=== PATIENT | female | born 1970 | race Two or more races ===

== ENCOUNTER 2019-06-17 00:12 | Emergency (ER) | payer MEDICAID ==
[~2019-06-17] VITALS: Ht 142.2 cm; Wt 72.6 kg
[~2019-06-17 00:12] MED LIST: KEFLEX500 MG ORAL; NKM; NORCO 5-325 TA1 EACH ORAL
--- NOTE | 2019-06-17 00:23 | NUR ---
ED Nurse Note: pt presents to ED c/o R buttock and hip px since this morning. pt denies any injury or trauma to the area. 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 pt rates the paina 7/10 that is there when she walks and when she is sitting still. pt denies any other symptoms at this time.
[2019-06-17 00:27] VITALS: BP 128/80
[2019-06-17] MEDS ORDERED: Ketorolac 60mg Inj IM ONE (00:45)
[2019-06-17] MEDS ORDERED: IBUPROFEN600 MG ORAL (00:45)
[2019-06-17 00:49] VITALS: BP 128/80
--- NOTE | 2019-06-17 00:49 | NUR ---
ER DISCHARGE NOTE: Patient is cleared to be discharged per ERMD, pt is aox4, on room air, with stable vital signs. pt was given dc and prescription instructions, pt was able to verbalize understanding, pt id band removed without complications. pt is able to ambulate with steady gait. pt took all belongings.
--- NOTE | 2019-06-17 01:13 | Emergency Room Report ---
History of Present Illness General Chief Complaint: Pain Source: Patient Present Illness HPI Patient presents with complaints of right-sided leg pain and numbness Patient reports that she was fairly ill yesterday with chills and was in bed for prolonged period of time After getting out of bed she felt some numbness to the right buttock area down to the right upper mid thigh Denies any difficulty ambulating denies any saddle paresthesia Denies any loss of control of bowel or urination Along with the numbness and tingling patient also felt some increased pain at times sharp shooting Denies any foot drop denies any other recent trauma denies any midline back pain Allergies: Coded Allergies: No Known Allergies (Unverified , 12/29/12) Patient History Past Medical History: see triage record Reviewed Nursing Documentation: PMH: Agreed; PSxH: Agreed Nursing Documentation-PMH Past Medical History: No Stated History Review of Systems All Other Systems: negative except mentioned in HPI Physical Exam Vital Signs Date Time Temp Pulse Resp B/P (MAP) Pulse Ox O2 Delivery O2 Flow Rate FiO2 06/17/19 00:16 98.4 58 16 128/80 (96) 98 Room Air Sp02 EP Interpretation: reviewed, normal General Appearance: well appearing, no apparent distress Head: normocephalic, atraumatic Eyes: bilateral eye PERRL, bilateral eye EOMI ENT: hearing grossly normal, EOM grossly intact Neck: supple Respiratory: lungs clear, no retraction Cardiovascular #1: regular rate, rhythm Gastrointestinal: non tender, soft Genitourinary: no CVA tenderness Musculoskeletal: other - Tender on palpation of the right posterior superior iliac crest, patient otherwise ambulatory, able to raise up on her toes sensory is intact, Neurologic: alert, hr generalist III-XII nml as tested, oriented x3 Skin: no rash Lymphatic: no adenopathy Medical Decision Making Diagnostic Impression: Primary Impression: sciatica ER Course Patient description and the clinical exam appears to be consistent with likely sciatic discomfort Other differential such as neurological, neurosurgical, vascular, chest etiology entertained Patient otherwise has a fairly consistent exam with sciatic flare After initial intervention does feel better and will have initial conservative outpatient trial with Return to ER with any worsening symptoms Last Vital Signs Date Time Temp Pulse Resp B/P (MAP) Pulse Ox O2 Delivery O2 Flow Rate FiO2 06/17/19 00:49 98.4 89 16 128/80 98 Room Air Status: improved Disposition: HOME, SELF-CARE Condition: Improved Scripts Ibuprofen* (MOTRIN*) 600 Mg Tablet 600 MG ORAL Q8H PRN for For Pain, #20 TAB 0 Refills Prov: Cristopher Salazar DO 06/17/19 Referrals: NON PHYSICIAN (PCP) [facility] Leyva. [facility] Patient Instructions: Sciatica, [id number] Additional Instructions: Patient is provided with the discharge instructions notified to follow up with primary doctor in the next 2-3 days otherwise return to the er with any worsening symptoms. Please note that this report is being documented using [employer]AG[employer] technology. This can lead to erroneous entry secondary to incorrect interpretation by the dictating instrument. Cristopher Salazar DO Jun 17, 2019 01:13
== END 2019-06-17 00:51 | disposition home or self-care (01) ==
LOC: EMR 00:40
DX: M54.30 Sciatica, unspecified side (principal); M79.604 Pain in right leg
CPT/HCPCS: 96372; Z7502; 99283

== ENCOUNTER 2019-10-02 09:01 | Emergency (ER) | payer MEDICAID ==
[~2019-10-02] VITALS: Ht 142.2 cm; Wt 72.6 kg
[~2019-10-02 09:01] MED LIST changes: +IBUPROFEN600 MG ORAL
--- NOTE | 2019-10-02 09:12 | NUR ---
ED Nurse Note: Patient walked into ED c/o anxiety since this AM. Patient feels like she is having a panic attack, woke this AM with neck/shoulder tensioni along with pain radiating down her right arm. Patient AxO x 4. Urine sample collected and sent to lab.
[2019-10-02 09:13] VITALS: BP 147/89
--- NOTE | 2019-10-02 09:20 | NUR ---
ED Nurse Note: 20 g IV started in right AC, blood collected and sent to lab. 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 Bed in lowest position. Patient denies suicidal ideation or desire to hurt others.
--- NOTE | 2019-10-02 09:28 | Emergency Room Report ---
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 She reports this morning that she felt pain in her neck tightness in her right arm she started breathing very quickly, started having tears and feeling very anxious, and very sad severity was moderate, constant lasting minutes to an hour started earlier this morning, she states this was similar to when she had a panic attack in 2009. She denies any chest pain or shortness of breath Allergies: Coded Allergies: No Known Allergies (Unverified , 12/29/12) Patient History Past Medical History: see triage record Last Menstrual Period: none Now: No Reviewed Nursing Documentation: PMH: Agreed; PSxH: Agreed Nursing Documentation-PMH Past Medical History: No Stated History Review of Systems All Other Systems: negative except mentioned in HPI Physical Exam Vital Signs Date Time Temp Pulse Resp B/P (MAP) Pulse Ox O2 Delivery O2 Flow Rate FiO2 10/02/19 09:03 98.2 58 20 147/89 (108) 98 Room Air Sp02 EP Interpretation: reviewed, normal General Appearance: well appearing, no apparent distress, alert Head: normocephalic, atraumatic Eyes: bilateral eye PERRL, bilateral eye EOMI ENT: uvula midline, moist mucus membranes Neck: supple, thyroid normal, supple/symm/no masses Respiratory: lungs clear, no respiratory distress, no retraction, no accessory muscle use Cardiovascular #1: normal peripheral pulses, regular rate, rhythm, no edema, no gallop, no murmur Gastrointestinal: non tender, soft, no guarding, no rebound Musculoskeletal: normal inspection Neurologic: alert, oriented x3 Psychiatric: no suicidal/homicidal ideation, anxious Skin: no rash, warm/dry Medical Decision Making Diagnostic Impression: Primary Impression: Panic attack ER Course 49-year-old female presents most likely a panic attack, labs drawn to rule out ACS Chest x-ray negative, EKG negative labs negative Patient denies any acute suicidal ideations Disposition Home, mental health references were provided to the patient Laboratory Tests Test 10/02/19 09:25 White Blood Count 7.3 K/UL (4.8-10.8) Red Blood Count 5.08 M/UL (4.20-5.40) Hemoglobin 15.7 G/DL (12.0-16.0) Hematocrit 46.3 % (37.0-47.0) Mean Corpuscular Volume 91 FL (80-99) Mean Corpuscular Hemoglobin 30.9 PG (27.0-31.0) Mean Corpuscular Hemoglobin Concent 33.9 G/DL (32.0-36.0) Red Cell Distribution Width 12.3 % (11.6-14.8) Platelet Count 269 K/UL (150-450) Mean Platelet Volume 8.2 FL (6.5-10.1) Neutrophils (%) (Auto) 59.8 % (45.0-75.0) Lymphocytes (%) (Auto) 29.1 % (20.0-45.0) Monocytes (%) (Auto) 8.1 % (1.0-10.0) Eosinophils (%) (Auto) 1.5 % (0.0-3.0) Basophils (%) (Auto) 1.5 % (0.0-2.0) Sodium Level 141 MMOL/L (136-145) Potassium Level 3.6 MMOL/L (3.5-5.1) Chloride Level 104 MMOL/L (98-107) Carbon Dioxide Level 23 MMOL/L (21-32) Anion Gap 14 mmol/L (5-15) Blood Urea Nitrogen 11 mg/dL (7-18) Creatinine 0.6 MG/DL (0.55-1.30) Estimate Glomerular Filtration Rate > 60 mL/min (>60) Glucose Level 117 MG/DL (74-106) H Calcium Level 9.6 MG/DL (8.5-10.1) Total Bilirubin 0.6 MG/DL (0.2-1.0) Aspartate Amino Transferase (AST) 25 U/L (15-37) Alanine Aminotransferase (ALT) 50 U/L (12-78) Alkaline Phosphatase 147 U/L (46-116) H Troponin I 0.007 ng/mL (0.000-0.056) Pro-B-Type Natriuretic Peptide Pending Total Protein 8.6 G/DL (6.4-8.2) H Albumin 3.9 G/DL (3.4-5.0) Globulin 4.7 g/dL Albumin/Globulin Ratio 0.8 (1.0-2.7) L Lipase 211 U/L (73-393) Thyroid Stimulating Hormone (TSH) 1.921 uiU/mL (0.358-3.740) Free Thyroxine 1.26 NG/DL (0.76-1.46) Free Triiodothyronine 3.4 pg/mL (2.3-4.2) Urine Opiates Screen Negative (NEGATIVE) Urine Barbiturates Screen Negative (NEGATIVE) Phencyclidine (PCP) Screen Negative (NEGATIVE) Urine Amphetamines Screen Negative (NEGATIVE) Urine Benzodiazepines Screen Negative (NEGATIVE) Urine Cocaine Screen Negative (NEGATIVE) Urine Marijuana (THC) Screen Negative (NEGATIVE) EKG Diagnostic Results EKG Time: 09:21 EP Interpretation: Sinus bradycardia, rate 58, QTc 455, no acute ST elevations , normal axis Rhythm Strip Diag. Results Rhythm Strip Time: 09:35 EP Interpretation: yes Rate: 53 Rhythm: other - Sinus bradycardia Chest X-Ray Diagnostic Results Chest X-Ray Diagnostic Results : Chest X-Ray Ordered: Yes # of Views/Limited/Complete: 1 View Indication: Other - Preoperative EP Interpretation: Yes Interpretation: no consolidation, no effusion, no pneumothorax, no acute cardiopulmonary disease Impression: No acute disease Electronically Signed by: Bernardo Sanchez MD Last Vital Signs Date Time Temp Pulse Resp B/P (MAP) Pulse Ox O2 Delivery O2 Flow Rate FiO2 10/02/19 09:03 98.2 58 20 147/89 (108) 98 Room Air Disposition: HOME, SELF-CARE Condition: Stable Referrals: [facility] Patient Instructions: Panic Attacks, [id number] Additional Instructions: The patient was provided with discharge instructions, notified to follow-up with a primary care doctor and or specialist in the next 24-48 hours, and to return to the ED if they have worsening of their symptoms. Please note that this report is being documented using [email or web address] technology. This can lead to erroneous entry secondary to incorrect interpretation by the dictating instrument. Bernardo Sanchez MD Oct 02, 2019 09:28
[2019-10-02 09:41] LABS: BASOPHILS % (AUTO) 1.5 % (0.0-2.0); EOSINOPHILS % (AUTO) 1.5 % (0.0-3.0); HEMATOCRIT 46.3 % (37.0-47.0); HEMOGLOBIN 15.7 G/DL (12.0-16.0); LYMPHOCYTES % (AUTO) 29.1 % (20.0-45.0); MEAN CORPUSCULAR VOLUME 91 FL (80-99); MONOCYTES % (AUTO) 8.1 % (1.0-10.0); NEUTROPHILS % (AUTO) 59.8 % (45.0-75.0); PLATELET COUNT 269 K/UL (150-450); RED BLOOD COUNT 5.08 M/UL (4.20-5.40); RED CELL DISTRIBUTION WIDTH 12.3 % (11.6-14.8); WHITE BLOOD COUNT 7.3 K/UL (4.8-10.8)
--- NOTE | 2019-10-02 10:05 | Diagnostic Imaging Report ---
Indication: Chest pain Technique: One view of the chest Comparison: none Findings: Lungs and pleural spaces are clear. Heart size is upper limits normal. Impression: No acute process
[2019-10-02 10:06] LABS: ANION GAP 14 mmol/L (5-15); BLOOD UREA NITROGEN 11 mg/dL (7-18); CALCIUM 9.6 MG/DL (8.5-10.1); CARBON DIOXIDE 23 MMOL/L (21-32); CHLORIDE 104 MMOL/L (98-107); CREATININE 0.6 MG/DL (0.55-1.30); POTASSIUM 3.6 MMOL/L (3.5-5.1); SODIUM 141 MMOL/L (136-145)
[2019-10-02 10:21] LABS: ALANINE AMINOTRANSFERASE 50 U/L (12-78); ALBUMIN 3.9 G/DL (3.4-5.0); ALBUMIN/GLOBULIN RATIO 0.8 (1.0-2.7); ALKALINE PHOSPHATASE 147 U/L (46-116); ASPARTATE AMINO TRANSFERASE 25 U/L (15-37); BILIRUBIN,TOTAL 0.6 MG/DL (0.2-1.0)
[2019-10-02 10:48] VITALS: BP 142/84
--- NOTE | 2019-10-02 10:48 | NUR ---
ER DISCHARGE NOTE: Patient is cleared to be discharged per Dr. Sanchez, pt is aox4, on room air, with stable vital signs. pt was given dc and prescription instructions, pt was able to verbalize understanding, IV and ID band removed. Patient given list of mental health clinics and verbalized understanding of f/u care. pt is able to ambulate with steady gait. pt took all belongings.
== END 2019-10-02 10:48 | disposition home or self-care (01) ==
LOC: EMR 09:33
DX: F41.0 Panic disorder [episodic paroxysmal anxiety] (principal); E78.00 Pure hypercholesterolemia, unspecified
CPT/HCPCS: 36415; 71045; 80053; 80307; 83690; 83880; 84439; 84443; 84481; 84484; 85025; 93005; Z7502; 99284

== ENCOUNTER 2020-06-13 10:54 | Emergency (ER) | payer MEDICAID ==
[~2020-06-13] VITALS: Ht 149.9 cm; Wt 72.6 kg
--- NOTE | 2020-06-13 11:08 | NUR ---
ED Nurse Note: pt presents to ED c/o facial tingling this AM. pt states that she stood up after watching TV and having facial tingling then experienced blurry vision. since then the symptoms have resolved, she is only experiencing R eye tingling. pt denies any pain at this time. eye brow and smile are symmetrical, no arm drifting.
[2020-06-13 11:11] VITALS: BP 122/79
[2020-06-13] MEDS ORDERED: ALPRAZOLAM0.25 MG ORAL (11:44)
[2020-06-13 11:50] VITALS: BP 122/79
--- NOTE | 2020-06-14 14:59 | Emergency Room Report ---
History of Present Illness General Chief Complaint: General Complaint Source: Patient Present Illness HPI 50-year-old female presents with tingling to her face. Woke up this morning and states that she felt dizzy and then felt tingling to her face. States symptoms have overall resolved but states she still has somewhat tingling on the right side of her face. Denies any slurred speech or facial droop. Denies any arm or leg weakness. Denies any change in taste or smell. No other aggravating relieving factors. 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: No Patient History Past Medical History: none Past Surgical History: none Pertinent Family History: none Social History: Denies: smoking, alcohol use, drug use Now: No Immunizations: UTD Reviewed Nursing Documentation: PMH: Agreed; PSxH: Agreed Nursing Documentation-PMH Past Medical History: No Stated History Review of Systems All Other Systems: negative except mentioned in HPI Physical Exam Vital Signs Date Time Temp Pulse Resp B/P (MAP) Pulse Ox O2 Delivery O2 Flow Rate FiO2 06/13/20 10:58 97.7 54 17 122/79 (93) 99 Room Air Sp02 EP Interpretation: reviewed, normal General Appearance: no apparent distress, alert, GCS 15, non-toxic Head: normocephalic, atraumatic Eyes: bilateral eye normal inspection, bilateral eye PERRL ENT: hearing grossly normal, normal pharynx, no angioedema, normal voice Neck: full range of motion, supple/symm/no masses Respiratory: chest non-tender, lungs clear, normal breath sounds, speaking full sentences Cardiovascular #1: regular rate, rhythm, no edema Cardiovascular #2: 2+ carotid (R), 2+ carotid (L), 2+ radial (R), 2+ radial (L), 2+ dorsalis pedis (R), 2+ dorsalis pedis (L) Gastrointestinal: normal bowel sounds, non tender, soft, non-distended, no guarding, no rebound Rectal: deferred Genitourinary: normal inspection, no CVA tenderness Musculoskeletal: back normal, normal range of motion, gait/station normal, non- tender Neurologic: alert, motor strength/tone normal, optical mechanic III-XII nml as tested, oriented x3, sensory intact, motor weakness, responsive, speech normal Psychiatric: judgement/insight normal, memory normal, mood/affect normal, no suicidal/homicidal ideation Reflexes: 3+ bicep (R), 3+ bicep (L), 3+ tricep (R), 3+ tricep (L), 3+ knee (R), 3+ knee (L) Skin: no rash Lymphatic: no adenopathy Medical Decision Making Diagnostic Impression: Primary Impression: Tingling sensation in face ER Course 50-year-old female presents with episode of dizziness and tingling to the face today Differential diagnoses include: migraine, CVA/TIA, bells palsy Clinical course Patient placed in chair. After initial history physical exam reveals middle-age female for no acute distress. Cranial nerves II through XII intact. No facial droop. Sensations intact. Findings with patient. My suspicion for Dunlap's palsy and/or CVA/TIA is low. No focal deficits identified. Patient does describe that she does have a history of anxiety and has taken medication for this in the past. Agrees to restart low-dose Xanax. We discussed option for CT head but patient declined at this time. Safe for discharge with close outpatient follow-up. I will provide referrals I. I feel this is a highly complex case requiring extensive working including EKG/Rhythm strip, Xray/CT/US, Blood/urine lab work, repeat exams while in ED, and administration of strong opiates/narcotics for pain control, admission to hospital or close patient follow up. Diagnosis - tingling sensation in face Stable and discharged to home. Follow-up with PMD. Return to ED if symptoms recur or worsen Last Vital Signs Date Time Temp Pulse Resp B/P (MAP) Pulse Ox O2 Delivery O2 Flow Rate FiO2 06/13/20 11:50 97.7 17 122/79 99 Room Air 06/13/20 11:10 54 Status: improved Disposition: HOME, SELF-CARE Condition: Stable Scripts Alprazolam* (XANAX*) 0.25 Mg Tablet 0.25 MG ORAL TID PRN for For Anxiety, #10 TAB Prov: Angus Rosas MD 06/13/20 Referrals: NON PHYSICIAN (PCP) [facility] Patient Instructions: Panic Attacks, [id number] Angus Rosas MD Jun 14, 2020 14:59
== END 2020-06-13 11:50 | disposition home or self-care (01) ==
LOC: EMR 11:34
DX: R20.2 Paresthesia of skin (principal)
CPT/HCPCS: 99282